=== PATIENT | male | born 1950 | race Caucasian/White ===

== ENCOUNTER 2021-08-03 17:06 | Inpatient (IN) | payer MEDICARE, OTHER ==
[~2021-08-03] VITALS: Ht 167.6 cm; Wt 92.1 kg
[2021-08-03] MEDS ORDERED: HALOPERIDOL LACTATE 5 MG/1 ML VIAL IM ONE (17:30)
[2021-08-03] MEDS ORDERED: MIDAZOLAM HCL 2 MG/2 ML VIAL IM ONE (17:30)
[2021-08-03] MEDS ORDERED: HALOPERIDOL LACTATE 5 MG/1 ML VIAL ONE (17:42)
[2021-08-03] MEDS ORDERED: MIDAZOLAM HCL 2 MG/2 ML VIAL ONE (17:43)
--- NOTE | 2021-08-03 17:45 | NUR ---
PT UNCOOPERATIVE, COMBATIVE AND LOUD, CODE ASHLIE CALLED. SECURITY AT BEDSIDE. DR HARTLEY AT BEDSIDE FOR EVAL. MEDICATED FOR AGGRESSION PER MD ORDER.
[2021-08-03] MEDS ORDERED: LISI10TA29 PO (18:13)
[2021-08-03] MEDS ORDERED: RIVA10TA PO (18:13)
[2021-08-03] MEDS ORDERED: INSU100I4 SQ (18:13)
[2021-08-03] MEDS ORDERED: MEMA10TA PO (18:13)
[2021-08-03] MEDS ORDERED: ACET-2154 PO (18:13)
[2021-08-03] MEDS ORDERED: CHOL2000 PO (18:13)
[2021-08-03] MEDS ORDERED: DOCU100C36 PO (18:13)
[2021-08-03] MEDS ORDERED: SENN-261 PO (18:13)
[2021-08-03] MEDS ORDERED: AMIO200T5 PO (18:13)
[2021-08-03] MEDS ORDERED: POTA10CA43 PO (18:13)
[2021-08-03] MEDS ORDERED: SERT50TA PO (18:13)
[2021-08-03] MEDS ORDERED: AMLO10TA59 PO (18:13)
[2021-08-03] MEDS ORDERED: METO50TA16 PO (18:13)
[2021-08-03] MEDS ORDERED: DIPH25CA83 PO (18:13)
[2021-08-03] MEDS ORDERED: ATOR40TA PO (18:13)
[2021-08-03] MEDS ORDERED: MULT-594 PO (18:13)
[2021-08-03] MEDS ORDERED: LORA-258 PO (18:13)
[2021-08-03] MEDS ORDERED: FAMO-132 PO (18:13)
[2021-08-03] MEDS ORDERED: SITA50TA PO (18:13)
[2021-08-03 18:51] LABS: CARBON DIOXIDE 27 mmol/L (21-32); CHLORIDE 100 mmol/L (98-107); CREATININE 1.7 mg/dL (0.6-1.3); GLUCOSE 221 mg/dL (74-106); HEMATOCRIT 42.8 % (36.7-47.1); MEAN CORPUSCULAR HEMOGLOBIN 28.4 uug (23.8-33.4); MEAN CORPUSCULAR VOLUME 83.6 fL (73.0-96.2); PLATELET COUNT (AUTO) 214 K/uL (152-348); POTASSIUM 4.5 mmol/L (3.5-5.1); UREA NITROGEN, BLOOD 32 mg/dL (7-18)
[2021-08-03 18:57] LABS: ACETAMINOPHEN < 2.0 ug/mL (10-30); ALANINE AMINOTRANSFERASE 60 U/L (16-63); ALKALINE PHOSPHATASE 193 U/L (50-136); ASPARTATE AMINOTRANSFERASE 23 U/L (15-37); BILIRUBIN,DIRECT 0.1 mg/dL (0.0-0.2); BILIRUBIN,TOTAL 0.4 mg/dL (0.2-1.0); TOTAL PROTEIN, SERUM 7.7 g/dL (6.4-8.2)
[2021-08-03 18:58] LABS: ETHANOL < 3 MG/DL (0-0)
[2021-08-03] MEDS ORDERED: VANCOMYCIN IV 1,000 MG in IV DEXTROSE 5% 250 ML IV ONE (20:00)
--- NOTE | 2021-08-03 20:07 | NUR ---
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
[2021-08-03] MEDS ORDERED: VANCOMYCIN IV 200 ML ONE (20:11)
[2021-08-03] MEDS ORDERED: ONDANSETRON 4 MG/2 ML VIAL IV PRN (20:15)
[2021-08-03] MEDS ORDERED: DEXTROSE 50% 50 ML DISP.SYRIN IV PRN (20:15)
[2021-08-03] MEDS ORDERED: ACETAMINOPHEN 325 MG TABLET-SA PATIENTS-PAIN ONLY PO PRN (20:15)
[2021-08-03] MEDS ORDERED: ACETAMINOPHEN 325 MG TABLET PO PRN (20:15)
[2021-08-03] MEDS ORDERED: INSULIN REGULAR, HUMAN 300 UNIT/3 ML VIAL SQ PRN (20:15)
[2021-08-03] MEDS ORDERED: QUETIAPINE FUMARATE 25 MG TABLET PO PRN (20:15)
[2021-08-03] MEDS ORDERED: MORPHINE SULFATE 2 MG/1 ML DISP.SYRIN IV PRN (20:15)
[2021-08-03] MEDS ORDERED: LORAZEPAM 0.5 MG TABLET PO SCH (20:15)
[2021-08-03 20:37] LABS: *BILIRUBIN,URIN NEGATIVE (NEGATIVE); *BLOOD, URINE NEGATIVE (NEGATIVE); *CLARITY,URINE CLEAR (CLEAR); *COLOR,URINE YELLOW (YELLOW); *KETONES,URINE NEGATIVE (NEGATIVE); *UROBILINOGEN,URINE 0.2 E.U./dl (NORMAL); LEUKOCYTE ESTERASE ,URINE NEGATIVE (NEGATIVE); NITRITE, URINE NEGATIVE (NEGATIVE); UGLUCOSE NEGATIVE (NEGATIVE)
[2021-08-03 20:43] LABS: *AMPHETAMINE, URINE NEGATIVE (NEGATIVE); *CANNABINOID, URINE NEGATIVE (NEGATIVE); *COCCAINE, URINE NEGATIVE (NEGATIVE); *OPIATE, URINE NEGATIVE (NEGATIVE); *PHENCYCLIDINE SCREEN,URINE NEGATIVE (NEGATIVE)
--- NOTE | 2021-08-03 21:41 | NUR ---
Transfered to 3rd floor via gurny with no distress noted.
[2021-08-03] MEDS: ATORVASTATIN 40 MG TABLET PO SCH (21:57)
[2021-08-03] MEDS: BLOOD SUGAR DIAGNOSTIC 1 EACH STRIP VI SCH (21:59)
[2021-08-03] MEDS: IV 1/2NS 1000 ML 1,000 ML IV PRN (22:10)
[2021-08-03 22:13] VITALS: BP 101/45
[2021-08-04] VITALS (7 sets, daily range): BP systolic 112–146; BP diastolic 52–80
--- NOTE | 2021-08-04 05:15 | NUR ---
Pt admitted to Tele at 2140H, A-Fib on monitor. Denies pain or SOB. Pt confused but able to make needs known. On RA saturating 95%, no distress noted. Call light within reach. Safety and comfort provided. No other issues or concerns at this time, will endorse to day shift.
[2021-08-04] MEDS: BLOOD SUGAR DIAGNOSTIC 1 EACH STRIP VI SCH ×3 (06:27→18:12)
[2021-08-04 06:54] LABS: MEAN CORPUSCULAR HEMOGLOBIN 27.5 uug (23.8-33.4); MEAN CORPUSCULAR VOLUME 83.2 fL (73.0-96.2); PLATELET COUNT (AUTO) 187 K/uL (152-348)
--- NOTE | 2021-08-04 07:00 | NUR ---
Received pt. restless, agitated, screaming and attempting to get out of bed unsupervised at this time patient not following commands. On RA. with saturation within desire limits. Hemodynamically stable on controlled A-fib rate of 82 and sbp of 127/79. Patient on diaper soiled on urine BLE swollen redness with small areas noted to be blistered. Will continue with care plan.
[2021-08-04 07:26] LABS: THYROID STIMULATING HORMONE 4.098 mIU/mL (0.358-3.740)
[2021-08-04 07:31] LABS: BILIRUBIN,TOTAL 0.6 mg/dL (0.2-1.0); CREATININE 1.5 mg/dL (0.6-1.3); MAGNESIUM 2.2 mg/dL (1.8-2.4); PHOSPHOROUS 3.1 mg/dL (2.5-4.9)
[2021-08-04] MEDS: MULTIVITAMINS,THERAPEUTIC TABLET PO SCH (08:43)
[2021-08-04] MEDS: SERTRALINE HCL 50 MG TABLET PO SCH (08:44)
[2021-08-04] MEDS: DOCUSATE SODIUM 100 MG CAPSULE PO SCH ×2 (08:44→17:00)
[2021-08-04] MEDS: FAMOTIDINE 20 MG TABLET PO SCH ×2 (08:44→17:00)
[2021-08-04] MEDS: AMIODARONE HCL 200 MG TABLET PO SCH (08:44)
[2021-08-04] MEDS: SENNOSIDES 1 TABLET PO SCH (08:44)
[2021-08-04] MEDS: CHOLECALCIFEROL 1,000 UNIT TABLET PO SCH (08:44)
[2021-08-04] MEDS: MEMANTINE HCL 10 MG TABLET PO SCH ×2 (08:59→17:00)
[2021-08-04] MEDS: AMLODIPINE 10 MG TABLET PO SCH (09:00)
[2021-08-04] MEDS ORDERED: Medication Not On Formulary EA (Sitagliptin Phosphate (Januvia) 25 MG) PO SCH (09:00)
[2021-08-04] MEDS ORDERED: Medication Not On Formulary EA (Cholecalciferol (Vitamin D3) (Vitamin D3) 1 TAB) PO SCH (09:00)
[2021-08-04] MEDS ORDERED: LINAGLIPTIN 5 MG TABLET PO SCH (09:00)
--- NOTE | 2021-08-04 10:30 | NUR ---
Patient seen by speech therapy Ms. Vazquez. recommendations for NPO received and care plan discussed with attending later on.
--- NOTE | 2021-08-04 11:01 | NUR ---
Patient seen by attending DNP. Cruz in the unit to follow up on pt. report given. See order hx.
[2021-08-04] MEDS ORDERED: DEXTROSE 50% 50 ML DISP.SYRIN IV PRN (11:15)
--- NOTE | 2021-08-04 12:06 | NUR ---
Patient remains restless agitated, attempting to get out of bed unsupervised. At this time not following commands at all Nursing Financial Administrator informed.
[2021-08-04] MEDS: HEPARIN SODIUM,PORCINE 5,000 UNITS/ML VIAL SQ SCH ×2 (12:14→20:11)
[2021-08-04] MEDS: IV 1/2NS 1000 ML 1,000 ML IV PRN (15:06)
--- NOTE | 2021-08-04 16:30 | NUR ---
Telephone report given to Brandon Cosme,. and at 1717 patient tack picker via own bed and taken up to room 302. vitals stable no c/of pain. Iv infusing with IVF and patent. patient on room air with saturation above 95%.
--- NOTE | 2021-08-04 16:45 | NUR ---
transferred from [facility] via bed insisting to eat but per report patient is NPO failed swallow eval. CONTROLLED AFIB on monitor. continue tele as ordered
[2021-08-04] MEDS ORDERED: RIVAROXABAN 10 MG TABLET PO SCH (18:00)
[2021-08-04] MEDS: ATORVASTATIN 40 MG TABLET PO SCH (20:11)
[2021-08-04] MEDS ORDERED: LORAZEPAM 2 MG/1 ML VIAL IV PRN (21:00)
[2021-08-04] MEDS: VANCOMYCIN IV 1,000 MG in IV DEXTROSE 5% 250 ML IV SCH (21:38)
[2021-08-05] VITALS: BP 116/49
[2021-08-05] MEDS: BLOOD SUGAR DIAGNOSTIC 1 EACH STRIP VI SCH ×4 (00:18→17:25)
[2021-08-05 04:09] VITALS: BP 142/81
--- NOTE | 2021-08-05 05:19 | NUR ---
Pt restless and pulling out IV at beginning of shift, given Ativan tolerated well. Pt then calm and able to follow commands the rest of the shift. Denies pain or SOB. New IV site intact running ordered fluids. AFib on monitor. Safety and comfort provided. Maintained NPO status.
[2021-08-05 07:36] LABS: MEAN CORPUSCULAR HEMOGLOBIN 27.8 uug (23.8-33.4); MEAN CORPUSCULAR VOLUME 83.8 fL (73.0-96.2); PLATELET COUNT (AUTO) 210 K/uL (152-348)
[2021-08-05 07:55] LABS: CREATININE 1.5 mg/dL (0.6-1.3); MAGNESIUM 2.2 mg/dL (1.8-2.4); PHOSPHOROUS 3.2 mg/dL (2.5-4.9); POTASSIUM 3.9 mmol/L (3.5-5.1)
[2021-08-05] MEDS: SERTRALINE HCL 50 MG TABLET PO SCH (08:39)
[2021-08-05] MEDS: AMIODARONE HCL 200 MG TABLET PO SCH (08:40)
[2021-08-05] MEDS: DOCUSATE SODIUM 100 MG CAPSULE PO SCH ×2 (08:40→16:41)
[2021-08-05] MEDS: FAMOTIDINE 20 MG TABLET PO SCH ×2 (08:40→16:41)
[2021-08-05] MEDS: CHOLECALCIFEROL 1,000 UNIT TABLET PO SCH (08:40)
[2021-08-05] MEDS: SENNOSIDES 1 TABLET PO SCH (08:40)
[2021-08-05] MEDS: MEMANTINE HCL 10 MG TABLET PO SCH ×2 (08:40→16:41)
[2021-08-05] MEDS: MULTIVITAMINS,THERAPEUTIC TABLET PO SCH (08:40)
[2021-08-05] MEDS: AMLODIPINE 10 MG TABLET PO SCH (08:41)
[2021-08-05] MEDS: HEPARIN SODIUM,PORCINE 5,000 UNITS/ML VIAL SQ SCH ×2 (08:47→20:45)
[2021-08-05] MEDS: INSULIN REGULAR, HUMAN 300 UNIT/3 ML VIAL SQ PRN ×3 (08:48→17:25)
--- NOTE | 2021-08-05 10:44 | NUR ---
WOUND CARE CONSULT: PT PRESENTS WITH VERY RED LOWER LEGS WITH RESOLVING EDEMA, PRESENT ON ADMISSION. DR ALMANZA NOTIFIED OF DPM CONSULT REQUEST. IN AGREEMENT WITH PLAN OF CARE.
[2021-08-05 11:38] VITALS: BP 129/80
[2021-08-05] MEDS: IV 1/2NS 1000 ML 1,000 ML IV PRN (13:42)
[2021-08-05 16:00] VITALS: BP 168/83
[2021-08-05] MEDS: DIVALPROEX SPRINKLE 125 MG CAP.SPRINK PO SCH (20:44)
[2021-08-05] MEDS: ATORVASTATIN 40 MG TABLET PO SCH (20:44)
[2021-08-05] MEDS: VANCOMYCIN IV 1,000 MG in IV DEXTROSE 5% 250 ML IV SCH (20:53)
[2021-08-05 21:33] VITALS: BP 128/96
[2021-08-06] MEDS: BLOOD SUGAR DIAGNOSTIC 1 EACH STRIP VI SCH ×4 (00:09→16:30)
[2021-08-06] MEDS: INSULIN REGULAR, HUMAN 300 UNIT/3 ML VIAL SQ PRN ×2 (00:12→05:59)
[2021-08-06 04:15] VITALS: BP 129/80
--- NOTE | 2021-08-06 05:16 | NUR ---
Pt pleasant and able to follow commands. Denies pain or SOB. IV site intact. SR on tele. Pt had 1 episode of emesis, Dr. Brandt notified. Pt given Zofran, tolerated well. Safety and comfort provided. Will endorse to day shift.
[2021-08-06] MEDS ORDERED: INSULIN REGULAR, HUMAN 300 UNIT/3 ML VIAL SQ PRN (07:15)
[2021-08-06] MEDS ORDERED: BLOOD SUGAR DIAGNOSTIC 1 EACH STRIP VI SCH (07:30)
[2021-08-06] MEDS ORDERED: DEXTROSE 50% 50 ML DISP.SYRIN IV PRN (07:38)
[2021-08-06] MEDS: CHOLECALCIFEROL 1,000 UNIT TABLET PO SCH (08:06)
[2021-08-06] MEDS: SERTRALINE HCL 50 MG TABLET PO SCH (08:06)
[2021-08-06] MEDS: MULTIVITAMINS,THERAPEUTIC TABLET PO SCH (08:06)
[2021-08-06] MEDS: DIVALPROEX SPRINKLE 125 MG CAP.SPRINK PO SCH (08:06)
[2021-08-06] MEDS: AMLODIPINE 10 MG TABLET PO SCH (08:06)
[2021-08-06] MEDS: DOCUSATE SODIUM 100 MG CAPSULE PO SCH ×2 (08:06→17:11)
[2021-08-06] MEDS: MEMANTINE HCL 10 MG TABLET PO SCH ×2 (08:06→17:11)
[2021-08-06] MEDS: HEPARIN SODIUM,PORCINE 5,000 UNITS/ML VIAL SQ SCH (08:07)
[2021-08-06] MEDS: FAMOTIDINE 20 MG TABLET PO SCH ×2 (08:07→17:11)
[2021-08-06] MEDS: AMIODARONE HCL 200 MG TABLET PO SCH (08:07)
[2021-08-06] MEDS: SENNOSIDES 1 TABLET PO SCH (08:07)
[2021-08-06] MEDS ORDERED: DIVA125C2 PO (10:01)
[2021-08-06] MEDS ORDERED: CEPH500C2 PO (10:01)
[2021-08-06 11:01] VITALS: BP 135/77
[2021-08-06 15:18] VITALS: BP 164/78
--- NOTE | 2021-08-06 18:07 | NUR ---
dc orders received noted and carried out.rn report given to the long-term.pt left the facility via ambulances in stable condition
== END 2021-08-06 18:00 | DRG 602 ==
LOC: ER 17:14 → TELE3 21:08 → CCU 08-04 06:30 → TELE3 08-04 17:35 → MEDSURG3 08-06 06:54
PROVIDERS: ADMIT Nurse Practitioner Acute Care; ATTEND Nurse Practitioner Acute Care
DX: L03.115 Cellulitis of right lower limb (principal); N17.0 Acute kidney failure with tubular necrosis; D68.59 Other primary thrombophilia; E44.1 Mild protein-calorie malnutrition; G81.94 Hemiplegia, unspecified affecting left nondominant side; L03.116 Cellulitis of left lower limb; I87.2 Venous insufficiency (chronic) (peripheral); B35.1 Tinea unguium; E11.620 Type 2 diabetes mellitus with diabetic dermatitis; E11.22 Type 2 diabetes mellitus with diabetic chronic kidney disease; N18.9 Chronic kidney disease, unspecified; E66.9 Obesity, unspecified; Z74.01 Bed confinement status; E78.5 Hyperlipidemia, unspecified; F01.50 Vascular dementia, unspecified severity, without behavioral disturbance, psychotic disturbance, mood disturbance, and anxiety; F32.9 Major depressive disorder, single episode, unspecified; Z86.16 Personal history of COVID-19; R47.1 Dysarthria and anarthria; Z91.81 History of falling; I12.9 Hypertensive chronic kidney disease with stage 1 through stage 4 chronic kidney disease, or unspecified chronic kidney disease; I25.10 Atherosclerotic heart disease of native coronary artery without angina pectoris; Z82.49 Family history of ischemic heart disease and other diseases of the circulatory system; Z86.73 Personal history of transient ischemic attack (TIA), and cerebral infarction without residual deficits; Z87.01 Personal history of pneumonia (recurrent); I48.91 Unspecified atrial fibrillation; Z79.01 Long term (current) use of anticoagulants; Z79.4 Long term (current) use of insulin; R13.10 Dysphagia, unspecified; G47.33 Obstructive sleep apnea (adult) (pediatric)
CPT/HCPCS: 36415; 70030-TC; 70450; 71045; 76770; 83550; 83735; 84100; 84443; 85025; 93005; 97161; A4663; C1758; G0378; G0480; J1630; J1644; J1815; J2060; J2250; J2405; J3370; J3490; J7060